=== PATIENT | female | born 1940 | race American Indian/Alaskan Native ===

== ENCOUNTER → 2018-08-09 13:28 | Outpatient (CLI) | payer MEDICARE, MEDICAID, OTHER, SELFPAY ==
--- NOTE | 2018-08-09 | DI.RAD.S_ITS ---
PROCEDURE: XR KNEE RT 3V INDICATIONS: RIGHT KNEE PAIN TECHNIQUE: 3 views of the knee were acquired. COMPARISON: [facility], KNEE 3V LEFT, 08/22/2009, 8:57. [facility], KNEE 3V RIGHT, 05/07/2007, 3:30. FINDINGS: Bones: No fractures or dislocations, but there is severe knee joint osteoarthritis on the right where [id number] articulation is present at both feet ition lateral compartments but greater medially. Additionally at the patellofemoral joint there is moderate degenerative osteoarthritis at the lateral facet which appears to mildly worsened.. No suspicious bony lesions. Soft tissues: No joint effusion. No suspicious soft tissue calcifications. IMPRESSION: Progression of degenerative knee joint osteoarthritis from 2007 through to this current study documenting change from a moderate degree of osteoarthritis to a severe degree currently. Dictated by: Bar Hoffman M.D. on 08/09/2018 at 14:19 Approved by: Bar Hoffman M.D. on 08/09/2018 at 14:21
== END ==
PROVIDERS: PCP Family Medicine; Visit Provider Family Medicine
DX: M17.11 Unilateral primary osteoarthritis, right knee (principal)
CPT/HCPCS: 73562

== ENCOUNTER → 2020-05-12 17:30 | Outpatient (CLI) | payer MEDICARE, MEDICAID, OTHER, SELFPAY ==
--- NOTE | 2020-05-12 | DI.RAD.S_ITS ---
PROCEDURE: XR RIBS LT 2V INDICATIONS: Contusion Of Lt Chest Wall TECHNIQUE: Two views of the left ribs were acquired. COMPARISON: None. FINDINGS: Surgical changes and devices: None. Bones and chest wall: No visible displaced rib fractures or dislocations. Mild multilevel degenerative disc and endplate changes through the thoracic spine. Severe degeneration at the left chronic clavicular joint No suspicious bony lesions. Overlying soft tissues appear unremarkable. Lungs and pleura: The visualized lung appears clear. No pleural effusions or pneumothorax are visible. IMPRESSION: 1. No visible left-sided rib fractures. 2. 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 Dictated by: Bethany Isaacs M.D. on 05/12/2020 at 20:28 Approved by: Bethany Isaacs M.D. on 05/12/2020 at 20:31
--- NOTE | 2020-05-12 | DI.RAD.S_ITS ---
PROCEDURE: XR CHEST 2V INDICATIONS: Contusion Of Lt Chest Wall TECHNIQUE: 2 views of the chest were acquired. COMPARISON: [facility], , CHEST 2 VIEW, 06/01/2017, 21:44. FINDINGS: Surgical changes and devices: None. Lungs and pleura: Chronic asymmetric left hemidiaphragm eventration. Lungs are clear. No pleural effusions or pneumothorax. Mediastinum: Mediastinal contours are stable. Heart size is normal. Bones and chest wall: No suspicious bony abnormalities. Soft tissues appear unremarkable. IMPRESSION: 1. No radiographic evidence of acute chest trauma. Dictated by: Bethany Isaacs M.D. on 05/12/2020 at 20:31 Approved by: Bethany Isaacs M.D. on 05/12/2020 at 20:34
== END ==
PROVIDERS: PCP Family Medicine; Referring Provider Family Medicine; Visit Provider Family Medicine
DX: S20.212A Contusion of left front wall of thorax, initial encounter (principal); M19.011 Primary osteoarthritis, right shoulder; M47.814 Spondylosis without myelopathy or radiculopathy, thoracic region; X58.XXXA Exposure to other specified factors, initial encounter
CPT/HCPCS: 71046; 71100

== ENCOUNTER 2021-11-11 17:42 | Emergency (ER) | payer OTHER, MEDICAID, SELFPAY ==
[2021-11-11 17:52] VITALS: BP 163/67; PULSE 48; RESP 17; TEMP 37.1; O2SAT 97; BMI 22.8
--- NOTE | 2021-11-11 18:11 | ED.LOWEXIN ---
HPI - Extremity Injury (Lower) General Chief Complaint: Extremity Injury, Lower Stated Complaint: knee pain Time Seen by Provider: 11/11/21 18:11 Source: patient and EMS Mode of arrival: EMS Limitations: no limitations History of Present Illness HPI Narrative: This is a 81-year-old female who states she had a ground level fall on Tuesday. She states she landed on her knee. She tripped over a rug in her home. She states since then she is continued to have pain with ambulation. She tried Tylenol x1 without any improvement. She states she is normally quite active she had been cleaning her house prior to her fall. Patient denies any numbness or tingling. She denies weakness elsewhere. She denies any other injuries. She denies any other symptoms currently. She takes medication for hypertension and seasonal allergies including losartan and certirizine. Patient denies any recent surgeries. Denies any known drug allergies. No tobacco, alcohol or illicit. Her primary care is through the [facility]. Related Data Previous Rx's Medication Instructions Recorded fluticasone propionate 50 1 spray intranasal BID ##16 07/26/16 mcg/actuation nasal spray,suspension cetirizine 10 mg tablet 10 mg PO QDAY #30 tabs 12/15/16 cefuroxime axetil 250 mg tablet 250 mg PO BID #14 tabs 07/28/17 losartan 100 mg tablet (Cozaar) 100 mg PO QDAY #20 tabs 06/15/18 hydrocodone 5 mg-acetaminophen 325 1 tab PO Q6H PRN pain #10 tabs 11/11/21 mg tablet Review of Systems Review of Systems ROS Unobtainable: All systems reviewed & are unremarkable except as noted in HPI and below Patient History Social History Smoking Status: Former smoker Smoking Status: Former smoker Substance Use Type: does not use Exam Narrative Exam Narrative: GEN: well nourished, well appearing elderly female, alert and oriented, patient appears to be in mild distress. HEENT: Atraumatic, pupils are equal round reactive to light, extraocular movements are intact, nares are clear, TMs are clear with no fluid, there is no conjunctival pallor. Throat is clear without any exudates, erythema, tonsillar enlargement or uvular deviation HEART: Regular rate and rhythm without murmur, clicks, rubs. LUNGS:Lungs clear to auscultation, no wheezes, rales, crackles, chest moves symmetrically ABD:bowel sounds normal, soft, non-tender, no guarding, rebound, rigidity, no masses noted, no hepatosplenomegaly :No CVA tenderness MSCL: Patient has swelling of right knee. Patient has generalized tenderness of the knee. No obvious ecchymosis or skin changes. No lacerations. Patient has pain with joint laxity testing. no muscle atrophy, muscles strength 5/5 upper and lower extremities, full range of motion passively but painful. NEURO:CN 2-12 intact, sensation normal SKIN: No rash, ecchymosis, erythema or other skin changes noted. Initial Vital Signs Initial Vital Signs: Vital Signs Temperature 98.7 F 11/11/21 17:52 Pulse Rate 48 L 11/11/21 17:52 Respiratory Rate 17 11/11/21 17:52 Blood Pressure 163/67 H 11/11/21 17:52 Pulse Oximetry 97 11/11/21 17:52 Oxygen Delivery Method 11/11/21 17:52 Course Orders Ordered: Discontinued Medications Hydrocodone Bitart/Acetaminophen (Hydrocodone/Acet 5/325 Tablet) 1 tab PO NOW ONE Stop: 11/11/21 18:34 Last Admin: 11/11/21 18:45 Dose: 1 tab Documented By: TAMARA Reevaluation(s) Reevaluation #1: Patient is feeling better after norco. Reviewed x-ray findings. She does not have a walker anything to help with movement at home so discussed sending her home with 1 today. Jd wrap here and follow-up with her primary care were ultimately orthopedic surgery if not improving over the next week. Patient expresses understanding and comfort with this plan. Time: 19:10 Vital Signs Vital signs: Vital Signs - 8 hr 11/11/21 17:52 11/11/21 18:35 11/11/21 19:17 Temperature 98.7 F Pulse Rate 48 L 49 L 51 L Respiratory Rate 17 20 20 Blood Pressure 163/67 H 158/68 H 158/71 H Pulse Oximetry 97 98 100 Oxygen Delivery Method Room Air Room Air Room Air MDM - Extremity Injury (Lower) Imaging Data Extremity x-ray #1: Radiologist's Impression: Close Knee X-Ray (Signed) Kvng Arce - 11/11/21 Launch?Image [address] [address] XRay Report Signed Patient: Carolyne Wood MR#: [id number] : 1940 Acct:[id number] Age/Sex: 81 / F Date of Service: 11/11/21 Loc: ED Accession Number: [id number] ?? Procedure: XR knee RT 3V Ordering Provider: Vanessa Cochran D.O. PROCEDURE:? XR KNEE RT 3V ? INDICATIONS:? pain, swelling, fall on Tuesday. ? TECHNIQUE:? 3 views of the knee were acquired.? ? COMPARISON:? [facility], CR, XR KNEE RT 3V, 08/09/2018, 13:39. ? FINDINGS:? ? Bones:? No fractures or dislocations.? No suspicious bony lesions.? Moderate tricompartmental periarticular osteophyte formation.? Severe medial compartment narrowing. ? Soft tissues:? No joint effusion.? No suspicious soft tissue calcifications.? ? ? IMPRESSION:? 1. Osteoarthritis. 2. No acute fracture. No osseous lesion. If symptoms and/or clinical suspicion for pathology persist, further assessment with repeat, or advanced imaging (e.g., CT, MRI, or bone scan) may be helpful for further assessment. ? ? Dictated by: Kvng Arce M.D. on 11/11/2021 at 18:50 ? ? Approved by: Kvng Arce M.D. on 11/11/2021 at 18:51 MDM Narrative Medical decision making narrative: This is a 81-year-old female with ground level fall who is not anticoagulated who has isolated knee pain since Tuesday with no reported head injury. Patient's x-ray shows no acute fracture, she does have osteoarthritis, no large joint effusion. Discussed with patient suspect she may have a tendon or ligamentous injury she does have swelling on exam. She is improved with pain medication here. Plan for walker at home, Jd wrap and follow-up with PCP Orthopedic surgery in the next week if symptoms are not improving. Fall precautions were discussed all questions answered. Discharge Plan Departure Patient Disposition: Home Clinical Impression: Knee pain, right, Injury of knee, right Instructions: DI for Knee Pain Activity Restrictions/Additional Instructions: Your xray imaging does not show any injury to the bones today. Please follow-up with your primary care or orthopedic surgery in the next week if your symptoms are not resolving. Referral is included below, please call for an appointment. You can take Tylenol to a 1000 mg every 6 hours or [place] 1-2 tablets every 6 hours as needed for pain. These both have Tylenol in them so do not take more than 4000 mg of Tylenol in 24 hours. This medication can make you sleepy do not drive, perform hazardous activities or make any major decisions while taking it. This medication will make you constipated please take a stool softener once to twice daily until stools are soft and regular. Prescription sent to [facility] Splint Care: Keep splint clean and dry. Elevated affected body part to decrease swelling. OK to use ice pack on the affected body part. Use for 15-20 minutes each time, for 5-6x per day. If you develop worsening pain, numbness, tingling, discoloration of the affected body part, loosen the JD wrap, and either see your doctor for an urgent re-assessment, or return to the Emergency Department. Return to the Emergency Department for any new or worsening symptoms. Prescriptions: New hydrocodone-acetaminophen 5-325 mg tablet 1 tab PO Q6H PRN (Reason: pain) Qty: 10 0RF No Action fluticasone propionate 16 GM spray,suspension 1 spray Intranasal BID Qty: 16 5RF cetirizine 10 MG tablet 10 mg PO QDAY Qty: 30 2RF cefuroxime axetil 250 MG tablet 250 mg PO BID Qty: 14 0RF losartan [Cozaar] 100 mg tablet 100 mg PO QDAY Qty: 20 0RF Rx Instructions: Pt has yet to est. care with a new PCP. Please have patient call clinic and schedule appt. 06/15/18 Referrals: Razia Mejia MD [Primary Care Provider] - Chasidy Rouse MD [Physician] - Visit Report Forms: Patient Portal/API
--- NOTE | 2021-11-11 18:33 | DI.RAD.S_ITS ---
PROCEDURE: XR KNEE RT 3V INDICATIONS: pain, swelling, fall on Tuesday. TECHNIQUE: 3 views of the knee were acquired. COMPARISON: [facility], CR, XR KNEE RT 3V, 08/09/2018, 13:39. FINDINGS: Bones: No fractures or dislocations. No suspicious bony lesions. Moderate tricompartmental periarticular osteophyte formation. Severe medial compartment narrowing. Soft tissues: No joint effusion. No suspicious soft tissue calcifications. IMPRESSION: 1. Osteoarthritis. 2. No acute fracture. No osseous lesion. If symptoms and/or clinical suspicion for pathology persist, further assessment with repeat, or advanced imaging (e.g., CT, MRI, or bone scan) may be helpful for further assessment. Dictated by: Kvng Arce M.D. on 11/11/2021 at 18:50 Approved by: Kvng Arce M.D. on 11/11/2021 at 18:51
[2021-11-11 18:35] VITALS: BP 158/68; PULSE 49; RESP 20; O2SAT 98
[2021-11-11] MEDS: HYDROCODONE/ACET 5/325 TABLET 1 TAB PO (18:45)
[2021-11-11 19:17] VITALS: BP 158/71; PULSE 51; RESP 20; O2SAT 100
--- NOTE | 2021-11-11 19:24 | PC.NURSE ---
Jd wrap applied to pt right knee. Pt arranging transportation to her home. Pt to ambulate from ER with cane.
== END 2021-11-11 20:00 | disposition home or self-care (01) ==
PROVIDERS: Emergency Provider Emergency Medicine; PCP Family Medicine
DX: M25.561 Pain in right knee (principal); W18.30XA Fall on same level, unspecified, initial encounter
CPT/HCPCS: 73562; 99283

== ENCOUNTER 2022-10-22 20:49 | Emergency (ER) | payer MEDICARE, MEDICAID, OTHER, SELFPAY ==
[2022-10-22] VITALS (7 sets, daily range): BP systolic 117–143; BP diastolic 58–69; PULSE 53–66; RESP 20; TEMP 37; O2SAT 96–98; BMI 26.0
--- NOTE | 2022-10-22 21:07 | DI.RAD.S_ITS ---
PROCEDURE: XR CHEST 1V INDICATIONS: Shortness of breath TECHNIQUE: One view of the chest was acquired. COMPARISON: [facility], CR, XR CHEST 2V, 05/12/2020, 17:43. FINDINGS: Surgical changes and devices: Cholecystectomy clips are seen. Lungs and pleura: An incomplete inspiratory result is noted, causing a crowded appearance to the lung markings. No focal infiltrates are seen. No pneumothorax or significant pleural effusions are seen. Mediastinum: The cardiac contours are within normal limits. The aorta demonstrates calcification and tortuosity. Bones and chest wall: No suspicious bony lesions. Age-appropriate bony degenerative changes are seen. Overlying soft tissues appear unremarkable. IMPRESSION: Limited portable chest examination, without a significant cardiopulmonary abnormality identified. Postoperative and degenerative changes are seen. Dictated by: Jorge Luis Timmons M.D. on 10/22/2022 at 21:11 Approved by: Jorge Luis Timmons M.D. on 10/22/2022 at 21:11
[2022-10-22 21:43] LABS: Add Manual Diff / Slide Review NO; Basophils Absolute Auto 0 /uL (0-100); Basophils Percent Auto 0.4 % (0-2); Eosinophils Absolute Auto 0 /uL (0-450); Eosinophils Percent Auto 0.3 % (2-4); Hematocrit 39.8 % (36-46); Hemoglobin 13.4 g/dL (12.0-16.0); Lymphocytes Absolute Auto 900 /uL (1100-4500); Lymphocytes Percent Auto 16.8 % (25-40); Mean Corpuscular HGB Conc 33.7 % (30-36); Mean Corpuscular Hemoglobin 29.2 PG (26-34); Mean Corpuscular Volume 86.6 fL (80-100); Monocytes Absolute Auto 600 /uL (0-900); Monocytes Percent Auto 11.3 % (3-14); Neutrophils Absolute Auto 3700 /uL (1500-7000); Neutrophils Percent Auto 71.2 % (50-75); Platelet Count 136 X10^3/uL (150-400); Red Blood Cell Count 4.59 X10^6/uL (4.0-5.2); Red Cell Distribution Width 14.6 % (11.6-14.8); White Blood Cell Count 5.2 X10^3/uL (4.5-11.0)
[2022-10-22 21:46] LABS: INR 1.1 (0.9-1.3); Prothrombin Time 12.7 SECONDS (10.1-12.7)
[2022-10-22 21:50] LABS: Alanine Aminotransferase 20 IU/L (<35); Albumin Globulin Ratio 1.2 (1.0-2.8); Alkaline Phosphatase 92 U/L (38-126); Aspartate Aminotransferase 32 IU/L (14-36); BUN Creatinine Ratio 17.9 (6-22); Bilirubin Total 0.9 mg/dL (0.2-1.3); Blood Urea Nitrogen 14 mg/dL (7-17); Calcium 8.4 mg/dL (8.4-10.2); Carbon Dioxide 25 mmol/L (22-32); Chloride 99 mmol/L (98-107); Estimated Glomerular Filt Rate > 60 mL/min (>60); Globulin 3.3 g/dL (1.7-4.1); Glucose 106 mg/dL (80-110); HEMOLYSIS < 15 (0-50); Lactate (Lactic Acid) 0.7 mmol/L (0.7-2.1); Sodium 130 mmol/L (137-145); Total Protein 7.3 g/dL (6.3-8.2)
[2022-10-22 22:01] LABS: NT-proBNP (BNP-Adult 18+) 741 pg/mL (<450); Troponin I 0.016 ng/mL (0.01-0.034)
[2022-10-22 22:20] LABS: Adenovirus Not Detected (Not Detect); B. parapertussis Not Detected (Not Detecte); Bordetella pertussis Not Detected (Not Detecte); Chlamydophila pneumoniae Not Detected (Not Detect); Coronavirus 229E Not Detected (Not Detect); Coronavirus HKU1 Not Detected (Not Detect); Coronavirus NL 63 Not Detected (Not Detect); Coronavirus OC43 Not Detected (Not Detect); Human Metapneumovirus Not Detected (Not Detect); Human Rhinovirus/Enterovirus Not Detected (Not Detect); Influenza A Not Detected (Not Detect); Influenza B Not Detected (Not Detect); Mycoplasma pneumoniae Not Detected (Not Detect); Parainfluenza Virus 1 Not Detected (Not Detect); Parainfluenza Virus 2 Not Detected (Not Detect); Parainfluenza Virus 3 Not Detected (Not Detect); Parainfluenza Virus 4 Not Detected (Not Detect); Respiratory Syncytial Virus Not Detected (Not Detect)
[2022-10-22 22:21] LABS: SARS- CoV-2 Detected (Not Detecte)
[2022-10-23] VITALS: BP 133/60; PULSE 52; O2SAT 97
--- NOTE | 2022-10-23 00:02 | ED_ITS ---
HPI - SOB/Dyspnea General Chief Complaint: Shortness of Breath/Dyspnea Stated Complaint: Vomiting Time Seen by Provider: 10/23/22 00:01 Source: patient Mode of arrival: Ambulatory Limitations: no limitations History of Present Illness HPI Narrative: Patient is a 82-year-old female history of hypertension presenting today with a variety of symptoms. She reports that she is had fever cough congestion ongoing for about 1-2 weeks. She reports feeling better today however after lunch, which is the 1st meal she is had an awhile, she threw up 4 times. This brought her to the ED for further evaluation. sHe reports he is having some shortness of breath exertion minimal chest discomfort. She denies any abdominal pain or diarrhea. She has had some mild fever as well. She overall thought she was doing little bit better but still quite fatigued. Related Data Previous Rx's Medication Instructions Recorded fluticasone propionate 50 1 spray intranasal BID ##16 07/26/16 mcg/actuation nasal spray,suspension cetirizine 10 mg tablet 10 mg PO QDAY #30 tabs 12/15/16 cefuroxime axetil 250 mg tablet 250 mg PO BID #14 tabs 07/28/17 losartan 100 mg tablet (Cozaar) 100 mg PO QDAY #20 tabs 06/15/18 hydrocodone 5 mg-acetaminophen 325 1 tab PO Q6H PRN pain #10 tabs 11/11/ mg tablet ondansetron 4 mg disintegrating 4 mg PO Q8H PRN nausea and 10/23/22 tablet vomiting #10 tabs Allergies Allergy/AdvReac Type Severity Reaction Status Date / Time No Known Drug Allergies Allergy Verified 10/22/22 21:07 Review of Systems Review of Systems ROS Unobtainable: All systems reviewed & are unremarkable except as noted in HPI and below Patient History Social History Smoking Status: Former smoker Smoking Status: Former smoker alcohol intake frequency: 0-2 drinks per day Substance Use Type: does not use Exam Initial Vital Signs Initial Vital Signs: Vital Signs Temperature 98.6 F 10/22/22 20:58 Pulse Rate 66 10/22/22 20:58 Respiratory Rate 20 10/22/22 20:58 Blood Pressure 117/69 10/22/22 20:58 Pulse Oximetry 97 06/23/23 20:58 Oxygen Delivery Method Room Air 10/22/22 20:58 GENERAL: Alert 82-year-old female appears well HEENT: Head atraumatic,EOMI, pupils reactive, face symmetric, moist mucous membranes CARDIOVASCULAR: Regular rate and rhythm without murmurs, rubs or gallops. RESPIRATORY: Breath sounds equal bilaterally, no wheezes rales or rhonchi. No conversational dyspnea ABDOMEN: Soft, nontender. Normoactive bowel sounds all 4 quadrants. No guarding or rebound. EXTREMITIES: Normal range of motion, no clubbing or edema. Neurovascularly intact NEUROLOGICAL: Alert and oriented x4.Normal gait and speech. SKIN: Warm, dry, no laceration, no petechiae, no rashes or lesions. Course Orders Ordered: ED Orders 10/22/22 21:07 XR chest 1V Stat EKG-12 Lead Stat Measure peak expiratory flow ONCE RT Consult Eval and Treat NOW 10/22/22 21:12 Respiratory Panel (Film Array) Stat 10/22/22 21:25 Complete Blood Count AUTO DIFF Stat Comprehensive Metabolic Panel Stat Lactate (Lactic Acid) Stat NT-proBNP (BNP-Adult 18+) Stat Prothrombin Time INR Stat Troponin I Stat Discontinued Medications Albuterol (Albuterol Hfa Prepack) 1 box [facility] Stop: 10/23/22 00:13 Last Admin: 10/23/22 00:22 Dose: 1 box Documented By: Ondansetron HCl (Ondansetron 4 Mg Odt Prepack) 1 bottle [facility] ONE Stop: 10/23/22 00:13 Last Admin: 10/23/22 00:48 Dose: 1 bottle Documented By: SASKIA Vital Signs Vital signs: Vital Signs - 8 hr 10/22/22 22:29 10/22/22 22:29 10/22/22 22:30 Temperature Pulse Rate 63 Blood Pressure 128/67 118/63 Pulse Oximetry 98 10/22/22 22:30 10/22/22 23:00 10/22/22 23:01 Temperature Pulse Rate 60 53 L 54 L Blood Pressure Pulse Oximetry 98 96 96 10/22/22 23:01 10/22/22 23:30 10/22/22 23:31 Temperature Pulse Rate 54 L 55 L Blood Pressure 143/67 H Pulse Oximetry 97 96 10/22/22 23:31 10/23/22 00:00 10/23/22 00:00 Temperature Pulse Rate 52 L Blood Pressure 123/58 L 133/60 Pulse Oximetry 97 10/23/22 00:30 10/23/22 00:30 10/23/22 00:49 Temperature 97.7 F Pulse Rate 57 L Blood Pressure 121/57 L Pulse Oximetry 98 MDM - SOB/Dyspnea Lab Data 10/22/22 21:25 10/22/22 21:25 Labs: Lab Results 10/22/22 10/22/22 10/22/22 Range/Units 21:12 21:25 21:25 WBC 5.2 (4.5-11.0) X10^3/uL RBC 4.59 (4.0-5.2) X10^6/uL Hgb 13.4 (12.0-16.0) g/dL Hct 39.8 (36-46) % MCV 86.6 (80-100) fL MCH 29.2 (26-34) PG MCHC 33.7 (30-36) % RDW 14.6 (11.6-14.8) % Plt Count 136 L (150-400) X10^3/uL Neut % (Auto) 71.2 (50-75) % Lymph % (Auto) 16.8 L (25-40) % [place] % (Auto) 11.3 (3-14) % Eos % (Auto) 0.3 L (2-4) % Baso % (Auto) 0.4 (0-2) % Neut # (Auto) 3700 (0748-5885) /uL Lymph # (Auto) 900 L (6168-7931) /uL [place] # (Auto) 600 (0-900) /uL Eos # (Auto) 0 (0-450) /uL Baso # (Auto) 0 (0-100) /uL PT 12.7 (10.1-12.7) SECONDS INR 1.1 (0.9-1.3) Sodium (137-145) mmol/L Potassium (3.4-5.1) mmol/L Chloride (98-107) mmol/L Carbon Dioxide (22-32) mmol/L BUN (7-17) mg/dL Creatinine (0.52-1.04) mg/dL Estimated GFR (>60) mL/min BUN/Creatinine Ratio (6-22) Glucose (80-110) mg/dL Lactate (0.7-2.1) mmol/L Calcium (8.4-10.2) mg/dL Total Bilirubin (0.2-1.3) mg/dL AST (14-36) IU/L ALT (<35) IU/L Alkaline Phosphatase (38-126) U/L Troponin I (0.01-0.034) ng/mL NT-Pro-B Natriuret Pep (<450) pg/mL Total Protein (6.3-8.2) g/dL Albumin (3.5-5.0) g/dL Globulin (1.7-4.1) g/dL Albumin/Globulin Ratio (1.0-2.8) Chlamy pneumoniae PCR Not detected (Not Detect) Adenovirus (PCR) Not detected (Not Detect) B. pertussis DNA (PCR) Not detected (Not Detecte) B.parapertussis DNA PCR Not detected (Not Detecte) Coronavirus OC43 (PCR) Not detected (Not Detect) Coronavirus HKU1 (PCR) Not detected (Not Detect) Coronavirus 229E (PCR) Not detected (Not Detect) SARS-CoV-2 (PCR) Detected H (Not Detecte) Coronavirus NL63 (PCR) Not detected (Not Detect) Human Metapneumovir PCR Not detected (Not Detect) Influenza Type A (PCR) Not detected (Not Detect) Influenza Type B (PCR) Not detected (Not Detect) M. pneumoniae (PCR) Not detected (Not Detect) Parainfluenza 1 (PCR) Not detected (Not Detect) Parainfluenza 2 (PCR) Not detected (Not Detect) Parainfluenza 3 (PCR) Not detected (Not Detect) Parainfluenza 4 (PCR) Not detected (Not Detect) RSV (PCR) Not detected (Not Detect) Entero/Rhino (PCR) Not detected (Not Detect) 10/22/22 10/22/22 Range/Units 21:25 21:25 WBC (4.5-11.0) X10^3/uL RBC (4.0-5.2) X10^6/uL Hgb (12.0-16.0) g/dL Hct (36-46) % MCV (80-100) fL MCH (26-34) PG MCHC (30-36) % RDW (11.6-14.8) % Plt Count (150-400) X10^3/uL Neut % (Auto) (50-75) % Lymph % (Auto) (25-40) % [place] % (Auto) (3-14) % Eos % (Auto) (2-4) % Baso % (Auto) (0-2) % Neut # (Auto) (0015-9373) /uL Lymph # (Auto) (2731-8043) /uL [place] # (Auto) (0-900) /uL Eos # (Auto) (0-450) /uL Baso # (Auto) (0-100) /uL PT (10.1-12.7) SECONDS INR (0.9-1.3) Sodium 130 L (137-145) mmol/L Potassium 4.0 (3.4-5.1) mmol/L Chloride 99 (98-107) mmol/L Carbon Dioxide 25 (22-32) mmol/L BUN 14 (7-17) mg/dL Creatinine 0.78 (0.52-1.04) mg/dL Estimated GFR > 60 (>60) mL/min BUN/Creatinine Ratio 17.9 (6-22) Glucose 106 (80-110) mg/dL Lactate 0.7 (0.7-2.1) mmol/L Calcium 8.4 (8.4-10.2) mg/dL Total Bilirubin 0.9 (0.2-1.3) mg/dL AST 32 (14-36) IU/L ALT 20 (<35) IU/L Alkaline Phosphatase 92 (38-126) U/L Troponin I 0.016 (0.01-0.034) ng/mL NT-Pro-B Natriuret Pep 741 H (<450) pg/mL Total Protein 7.3 (6.3-8.2) g/dL Albumin 4.0 (3.5-5.0) g/dL Globulin 3.3 (1.7-4.1) g/dL Albumin/Globulin Ratio 1.2 (1.0-2.8) Chlamy pneumoniae PCR (Not Detect) Adenovirus (PCR) (Not Detect) B. pertussis DNA (PCR) (Not Detecte) B.parapertussis DNA PCR (Not Detecte) Coronavirus OC43 (PCR) (Not Detect) Coronavirus HKU1 (PCR) (Not Detect) Coronavirus 229E (PCR) (Not Detect) SARS-CoV-2 (PCR) (Not Detecte) Coronavirus NL63 (PCR) (Not Detect) Human Metapneumovir PCR (Not Detect) Influenza Type A (PCR) (Not Detect) Influenza Type B (PCR) (Not Detect) M. pneumoniae (PCR) (Not Detect) Parainfluenza 1 (PCR) (Not Detect) Parainfluenza 2 (PCR) (Not Detect) Parainfluenza 3 (PCR) (Not Detect) Parainfluenza 4 (PCR) (Not Detect) RSV (PCR) (Not Detect) Entero/Rhino (PCR) (Not Detect) Imaging Data Chest x-ray: Radiologist's Impression: PROCEDURE:? XR CHEST 1V ? INDICATIONS:? Shortness of breath ? TECHNIQUE:? One view of the chest was acquired.? ? COMPARISON:? [facility], , XR CHEST 2V, 05/12/2020, 17:43. ? FINDINGS:? ? Surgical changes and devices:? Cholecystectomy clips are seen.? ? Lungs and pleura:? An incomplete inspiratory result is noted, causing a crowded appearance to the lung markings.? No focal infiltrates are seen.? No pneumothorax or significant pleural effusions are seen. ? ? Mediastinum:? The cardiac contours are within normal limits. The aorta demonstra abdiaziz calcification and tortuosity. ? Bones and chest wall:? No suspicious bony lesions.? Age-appropriate bony degenerative changes are seen.? Overlying soft tissues appear unremarkable.? IMPRESSION:? ? Limited portable chest examination, without a significant cardiopulmonary abnormality identified.? ? Postoperative and degenerative changes are seen.? ? Dictated by: Jorge Luis Timmons M.D. on 10/22/2022 at 21:11 ?? ECG Data Interpretation: Sinus rhythm rate 57 RI interval 34 QRS [address] changes or T-wave inversi ons MDM Narrative Medical decision making narrative: Patient 82-year-old female history of hypertension presenting with 2 weeks of upper respiratory like symptoms with vomiting today. She is found to be COVID positive without evidence of pneumonia or hypoxia. Blood work is overall read reassuring without any clinical significance. Abdomen is soft and nontender she is tolerating fluids no evidence of dehydration. Symptoms are all likely related to COVID infection. At this time she does not require admission. Discharge Plan Departure Patient Disposition: Home Clinical Impression: COVID-19 Instructions: COVID-19 Activity Restrictions/Additional Instructions: *You have been diagnosed with COVID-19 *What to do: Increase fluid intake as tolerated recommend Pedialyte or Pedialyte like product may increase diet as tolerated. Please monitor oxygen level at home if decreasing to 90% then needs to return to emergency department for further evaluation *Continue to take medications as directed--> SENT TO [facility] Zofran 4 mg every 8 hours if needed for nausea vomiting Albuterol inhaler 1-2 puffs with spacer if needed for shortness breath *Follow up with your primary care provider in 2-3 days or call [phone] *Return to ER if you should have decreasing oxygen, not tolerating fluids, increased confusion weakness or worsening shortness of [or] any new, worsening or concerning symptoms Prescriptions: New ondansetron 4 mg tablet,disintegrating 4 mg PO Q8H PRN (Reason: nausea and vomiting) Qty: 10 0RF No Action fluticasone propionate 16 GM spray,suspension 1 spray Intranasal BID Qty: 16 5RF cetirizine 10 MG tablet 10 mg PO QDAY Qty: 30 2RF cefuroxime axetil 250 MG tablet 250 mg PO BID Qty: 14 0RF losartan [Cozaar] 100 mg tablet 100 mg PO QDAY Qty: 20 0RF Rx Instructions: Pt has yet to est. care with a new PCP. Please have patient call clinic and schedule appt. 06/15/18 hydrocodone-acetaminophen 5-325 mg tablet 1 tab PO Q6H PRN (Reason: pain) Qty: 10 0RF Referrals: Razia Mejia MD [Primary Care Provider] - Stand Alone Forms: Patient Portal/API
[2022-10-23] MEDS: ALBUTEROL HFA PREPACK 1 BOX MISC (00:22)
[2022-10-23 00:30] VITALS: BP 121/57; PULSE 57; O2SAT 98
[2022-10-23] MEDS: ONDANSETRON 4 MG ODT PREPACK 1 BOTTLE MISC (00:48)
[2022-10-23 00:49] VITALS: TEMP 36.5
== END 2022-10-23 00:50 | disposition home or self-care (01) ==
PROVIDERS: Emergency Provider Emergency Medicine; PCP Family Medicine
DX: U07.1 COVID-19 (principal); R06.02 Shortness of breath
CPT/HCPCS: 36415; 71045; 80053; 83605; 83880; 84484; 85025; 85610; 87633; 93005; 99283; 99284

== ENCOUNTER 2024-12-01 20:31 | Emergency (ER) | payer MEDICARE, MEDICAID, SELFPAY ==
[2024-12-01] VITALS (11 sets, daily range): BP systolic 145–187; BP diastolic 65–88; PULSE 51–70; RESP 17–24; TEMP 36.6; O2SAT 97–100
--- NOTE | 2024-12-01 22:08 | PC.NURSE ---
Pt had a call from a family member multiple times. He called the family friend that is always with him and started to argue with this nurse. I advised him that I am not able to speak to him at this time, that he will need to get information from people in room. Alhaji stated at first that he was the Guardian ruben hanley. I clarified do you mean, Power of Wardrobe Specialty Worker? He states yes. After review of pt chart, no documentation of POA. Pt is alert and oriented at this time and can give information to Alhaji herself when we have an update. However, I did state that we were not going to argue with him over the phone our priority is to treat the pt.
[2024-12-01] MEDS: ONDANSETRON 4 MG/2 ML INJ IV ×2 (22:10→23:19)
--- NOTE | 2024-12-01 22:43 | ED_ITS ---
HPI - Extremity Problem General Chief complaint: Extremity Problem,Nontraumatic Stated complaint: leg and abdomen pain Time Seen by Provider: 12/01/24 20:35 Source: patient and EMS Mode of arrival: EMS History of Present Illness HPI Narrative: 84-year-old female complains of epigastric central and also lower abdominal pain with pain to the right leg, no injury recalled. No aortic artery conditions or treatments known. No painful or frequent urination. Denies cough or shortness of breath. No diarrhea. Some nausea and vomiting of ?mucus? but no black or red color to her emesis. Denies use of blood thinner medications. Denies trauma or new activities. No fevers or chills. Related Data Previous Rx's ?Medication ?Instructions ?Recorded fluticasone propionate 50 1 spray intranasal BID ##16 07/26/16 mcg/actuation nasal spray,suspension cetirizine 10 mg tablet 10 mg PO QDAY #30 tabs 12/15 cefuroxime axetil 250 mg tablet 250 mg PO BID #14 tabs 07/28/17 losartan 100 mg tablet (Cozaar) 100 mg PO QDAY #20 tab s 06/15/18 hydrocodone 5 mg-acetaminophen 325 1 tab PO Q6H PRN pa in #10 tabs 11/11/21 mg tablet ondansetron 4 mg disintegrating 4 mg PO Q8H PRN nausea and 10/23/22 tablet vomiting #10 tabs Allergies Allergy/AdvReac Type Severity Reaction Status Date / Time No Known Drug Allergies Allergy Verified 12/01/24 20:33 Patient History Social History Smoking Status: Never smoker Smoking Status: Never smoker alcohol intake frequency: 0-2 drinks per day Exam Narrative Exam Narrative: GENERAL: Well-developed patient, in mild distress. HEAD: Atraumatic. Normocephalic. EYES: Pupils equal round and reactive. Extraocular motions intact. No scleral icterus. No injection or drainage. ENT: Nose without bleeding, purulent drainage. Throat without erythema, tonsillar hypertrophy or exudate. Airway patent. NECK: Trachea midline. Non tender CARDIOVASCULAR: Regular rate and rhythm without murmurs, gallops, or rubs. RESPIRATORY: Clear to auscultation. Breath sounds equal bilaterally. No wheezes, rales, or rhonchi. GASTROINTESTINAL: Abdomen nondistended, some tenderness epigastrium as well as right lower quadrant and left lower quadrant EXTREMITIES: No edema or joint tenderness. BACK: Nontender without deformity or crepitance. No flank tenderness. NEURO: AOx3. Motor functions grossly nonfocal. SKIN: No rash or erythema of visible areas Initial Vital Signs Initial Vital Signs: Vital Signs Temperature 98 F 12/01/24 20:32 Pulse Rate 54 L 12/01/24 20:32 Respiratory Rate 17 12/01/24 20:32 Blood Pressure 181/80 H 12/01/24 20:32 Pulse Oximetry 99 12/01/24 20:32 Oxygen Delivery Method Room Air 12/01/24 20:32 Course Orders Ordered: ED Orders 12/02/24 10:51 Consult to RECYCLABLE MATERIALS DISTRIBUTOR - Disability Examiner Stat Discontinued Medications Hydromorphone HCl (Hydromorphone Hcl 0.5 Mg/0.5 Ml Syringe) 0.5 mg IV NOW ONE Stop: 12/01/24 21:44 Last Admin: 12/01/24 22:09 Dose: 0.5 mg Documented By: ROSALINDA Sodium Chloride (Normal Saline 0.9%) 1,000 mls @ 1,000 mls/hr IV BOLUS ONE Stop: 12/02/24 04:37 Last Infusion: 12/02/24 04:54 Dose: Infused Documented By: Admin: 12/02/24 03:46 Dose: 1,000 mls/hr Documented By: ROSALINDA Lidocaine HCl (Lidocaine 2% (Glydo) 6 Ml Gel) 6 ml TOP NOW ONE Stop: 12/02/24 02:14 Last Admin: 12/02/24 02:17 Dose: 6 ml Documented By: ROSALINDA Morphine Sulfate (Morphine 4 Mg/Ml Inj) 4 mg IV NOW ONE Stop: 12/01/24 22:55 Last Admin: 12/01/24 23:12 Dose: 4 mg Documented By: ROSALINDA Ondansetron HCl (Ondansetron 4 Mg/2 Ml Inj) 4 mg IV NOW ONE Stop: 12/01/24 21:47 Last Admin: 12/01/24 22:10 Dose: 4 mg Documented By: ROSALINDA Ondansetron HCl (Ondansetron 4 Mg/2 Ml Inj) 4 mg IV NOW ONE Stop: 12/01/24 22:55 Last Admin: 12/01/24 23:19 Dose: 4 mg Documented By: ROSALINDA Pantoprazole Sodium (Pantoprazole 40 Mg Vial) 40 mg IV NOW ONE Stop: 12/01/24 22:55 Last Admin: 12/01/24 23:12 Dose: 40 mg Documented By: ROSALINDA Vital Signs Vital signs: Vital Signs - 8 hr 12/02/24 07:00 12/02/24 07:00 12/02/24 07:30 Pulse Rate 55 L 51 L Respiratory Rate 18 17 Blood Pressure 126/57 L Pulse Oximetry 97 98 Oxygen Delivery Method Room Air 12/02/24 07:30 12/02/24 08:00 12/02/24 08:01 Pulse Rate 51 L 51 L Respiratory Rate 19 15 Blood Pressure 127/56 L Pulse Oximetry 98 99 Oxygen Delivery Method 12/02/24 08:01 12/02/24 08:30 12/02/24 08:30 Pulse Rate 52 L Respiratory Rate 23 Blood Pressure 156/70 H 147/107 H Pulse Oximetry 100 Oxygen Delivery Method 12/02/24 09:00 12/02/24 09:01 12/02/24 09:01 Pulse Rate 54 L 54 L Respiratory Rate 21 21 Blood Pressure 173/74 H Pulse Oximetry 99 99 Oxygen Delivery Method 12/02/24 10:44 12/02/24 12:45 Pulse Rate 53 L 56 L Respiratory Rate 16 16 Blood Pressure 170/70 H 166/65 H Pulse Oximetry 99 99 Oxygen Delivery Method Room Air Room Air MDM - Extremity (Nontraumatic) Lab Data Lab results narrative: WBC 7200, Hb 14.4, platelets adequate, normal BMP, alkaline phosphatase slight elevation with other LFTs normal, slight Lipase elevation. Troponin measurable but quite low. UA negative. 12/01/24 21:56 12/01/24 21:56 Labs: Lab Results 12/01/24 12/02/24 Range/Units 21:56 02:30 WBC 7.2 (4.5-11.0) X10^3/uL RBC 4.95 (4.0-5.2) X10^6/uL Hgb 14.4 (12.0-16.0) g/dL Hct 42.8 (36-46) % MCV 86.5 (80-100) fL MCH 29.1 (26-34) PG MCHC 33.7 (30-36) % RDW 14.0 (11.6-14.8) % Plt Count 235 (150-400) X10^3/uL Neut % (Auto) 63.7 (50-75) % Lymph % (Auto) 26.6 (25-40) % [place] % (Auto) 8.4 (3-14) % Eos % (Auto) 0.8 L (2-4) % Baso % (Auto) 0.5 (0-2) % Neut # (Auto) 4600 (7891-2235) /uL Lymph # (Auto) 1900 (9261-9209) /uL [place] # (Auto) 600 (0-900) /uL Eos # (Auto) 100 (0-450) /uL Baso # (Auto) 0 (0-100) /uL PT 11.4 (9.4-12.5) SECONDS INR 1.0 (0.9-1.3) Sodium 136 L (137-145) mmol/L Potassium 3.7 (3.4-5.1) mmol/L Chloride 100 (98-107) mmol/L Carbon Dioxide 27 (22-32) mmol/L BUN 17 (7-17) mg/dL Creatinine 0.84 (0.52-1.04) mg/dL Estimated GFR > 60 (>60) mL/min BUN/Creatinine Ratio 20.2 (6-22) Glucose 96 (70-99) mg/dL Calcium 9.0 (8.4-10.2) mg/dL Total Bilirubin 0.8 (0.2-1.3) mg/dL AST 30 (14-36) IU/L ALT 16 (<35) IU/L Alkaline Phosphatase 145 H (38-126) U/L Troponin I 0.013 (0.01-0.034) ng/mL Total Protein 7.6 (6.3-8.2) g/dL Albumin 4.4 (3.5-5.0) g/dL Globulin 3.2 (1.7-4.1) g/dL Albumin/Globulin Ratio 1.4 (1.0-2.8) Lipase 478 H (23-300) U/L Urine Color Yellow Urine Appearance Clear Urine pH 7.5 (4.5-8.0) Ur Specific [place] 1.010 (1.000-1.035) Urine Protein Negative (Negative) Urine Glucose (UA) Negative (Negative) g/dL Urine Ketones Negative (NEGATIVE) Urine Occult Blood Negative (Negative) Urine Nitrate Negative (Negative) Urine Bilirubin Negative (NEGATIVE) Urine Urobilinogen 0.2 (0.2) E.U./dL Ur Leukocyte Esterase Negative (NEGATIVE) Urine RBC 0-1/hpf (0-5/HPF) Urine WBC 0-1/hpf (0-5/HPF) Ur Squamous Epith Cells 0-1 /hpf (0-5/HPF) Urine Bacteria Occasional (0-1) (None) Ur Culture Indicated? Cult not indicated Vol Urine Centrifuged 10ml (spun) Imaging Data CTA chest abdomen and pelvis: Radiologist's Impression: [address] [address] [address] Scan Report Signed Patient: Carolyne Wood MR#: [id number] : 1940 Acct:[id number] Age/Sex: 84 / F Date of Service: 12/01/24 Loc: ED Accession Number: [id number] Procedure: CT angio chest abdomen pelvis Ordering Provider: Bear Samuel MD PROCEDURE: CT ANGIO CHEST ABDOMEN PELVIS INDICATIONS: chest abd leg pain TECHNIQUE: Precontrast 5 mm thick sections acquired from the lung apices to the iliac crests. After the administration of intravenous contrast, 2.5 mm thick sections again acquired from the lung apices to the iliac crests. Maximum intensity projection (MIP) oblique sagittal and coronal reformats were then acquired. For radiation dose reduction, the following was used: automated exposure control. COMPARISON: None. FINDINGS: Image quality: Diagnostic. AORTA: No aortic aneurysm. No acute aortic syndrome. CHEST: Lower Neck: No enlarged lymph nodes. Thyroid: No thyroid nodules which require sonographic follow up, per consensus guidelines. Axillae: No enlarged lymph nodes. Chest Wall: Unremarkable. Lungs and Pleura: No pneumothorax or pleural effusions. Bibasilar atelectasis. No focal consolidation. No septal thickening or nodularity. Visualized airways appear clear. Heart: Heart size is normal. No pericardial effusion. Thoracic Vessels: Pulmonary arteries demonstrate normal size. Mediastinum and Vanessa: No enlarged lymph nodes. Esophagus: No wall thickening. No hiatal hernia. ABDOMEN: Liver: No solid mass. Gallbladder: Surgically absent Biliary ducts: No biliary dilation. Pancreas: Homogeneous enhancement without focal lesions or pancreatic ductal dilatation. No peripancreatic inflammation or organized fluid collections. Spleen: Size is within normal limits. Adrenal Glands: No adrenal nodules. Kidneys and Ureters: No hydronephrosis. No solid mass. No complex renal cystic lesion which requires follow up. Bilateral ureters are normal in course and caliber. Stomach and Bowel: Normal colonic caliber, without significant wall thickening. Scattered colonic diverticula without acute inflammation. No evidence for small bowel obstruction or associated inflammatory changes. Peritoneum: No abnormal intraperitoneal fluid. No free air. Ventral Wall: No hernia. Abdominal Nodes: No retroperitoneal or mesenteric adenopathy by size criteria. Vessels: Inferior vena cava is normal in size. PELVIS: Pelvic Organs: Unremarkable. Bladder: Urinary bladder is markedly distended. No wall thickening or pericholecystic inflammation. Pelvic Nodes: No enlarged lymph nodes. Miscellaneous: No inguinal hernias are seen. Bones: No acute vertebral body compression fractures. Multilevel spondylitic changes throughout the imaged spine. No suspicious osseous lesions. IMPRESSION: No evidence for aortic dissection or acute aortic syndrome. Marked distension of the urinary bladder. Colonic diverticulosis without acute diverticulitis. Other chronic/non-acute findings as above. Dictated by: Evangelista Walker M.D. on 12/02/2024 at 1:04 Approved by: Evangelista Walker M.D. on 12/02/2024 at 1:11 ECG Data Attestation EKG: I personally reviewed and interpreted this ECG as follows: Interpretation: 0453, computer reading his junctional but there are P waves that seemed to be present, ventricular response rate 52. No obvious ST segment elevation or depression changes. Some fine artifact noted baseline. QRS 60, QTC 446. MDM Narrative Medical decision making narrative: 84-year-old female with upper mid lower bilateral abdominal pain nontraumatic, also pain to the right leg, afebrile, sirs screen negative. Unclear unifying diagnosis, consider aortic/vascular pathology, radiculopthy, referred pain from nonvascular abdominopelvic pathology, other. Labs pending to check GFR. Consider aortogram. Patient agreeable. Screening labs unremarakable, GFR favorable, CTA Chest Abdomen Pelvis ordered. CTA Chest Abdomen Pelvis without aortic syndrome, no acute chest findings, no GI findings, but bladder markedly distended. No mention spinal lesions. See radiology report. Smith catheter placed. Clear nonbloody urine, sent to lab. UA negative, Patient feels better after foly catheter large volume bladder emptying. Will leave smith in place with advice for urology follow-up. DC home, FU with urology, call urology office tomorrow Tuesday morning, return precautions discussed. Discharge Plan Departure Patient Disposition: Home Clinical Impression: Lower abdominal pain, Acute urinary retention Instructions: DI for Urinary Retention in Women Activity Restrictions/Additional Instructions: Lower abdominal pain. CT imaging angiogram chest abdomen and pelvis performed tonight showing no acute cardiopulmonary or abdominal process, but some marked enlargement of your bladder. This might be causing your discomfort. Smith catheter was placed, with drainage of nonbloody fluid from your bladder. No obvious infection on your urinalysis test. Leave Smith catheter in place for now. Follow up with local urologist early this next week for further assessment. Return earlier to this/nearest emergency department for any change worsening symptoms or any concerns prior. Prescriptions: No Action fluticasone propionate 16 GM spray,suspension 1 spray Intranasal BID Qty: 16 5RF cetirizine 10 MG tablet 10 mg PO QDAY Qty: 30 2RF cefuroxime axetil 250 MG tablet 250 mg PO BID Qty: 14 0RF losartan [Cozaar] 100 mg tablet 100 mg PO QDAY Qty: 20 0RF Rx Instructions: Pt has yet to est. care with a new PCP. Please have patient call clinic and schedule appt. 06/15/18 hydrocodone-acetaminophen 5-325 mg tablet 1 tab PO Q6H PRN (Reason: pain) Qty: 10 0RF ondansetron 4 mg tablet,disintegrating 4 mg PO Q8H PRN (Reason: nausea and vomiting) Qty: 10 0RF Referrals: Wiliam Brady DO [Physician, Urology] Razia Mejia MD [Primary Care Provider, Family Practice] Stand Alone Forms: Patient Portal/API
--- NOTE | 2024-12-01 22:49 | DI.CT.S_ITS ---
PROCEDURE: CT ANGIO CHEST ABDOMEN PELVIS INDICATIONS: chest abd leg pain TECHNIQUE: Precontrast 5 mm thick sections acquired from the lung apices to the iliac crests. After the administration of intravenous contrast, 2.5 mm thick sections again acquired from the lung apices to the iliac crests. Maximum intensity projection (MIP) oblique sagittal and coronal reformats were then acquired. For radiation dose reduction, the following was used: automated exposure control. COMPARISON: None. FINDINGS: Image quality: Diagnostic. AORTA: No aortic aneurysm. No acute aortic syndrome. CHEST: Lower Neck: No enlarged lymph nodes. Thyroid: No thyroid nodules which require sonographic follow up, per consensus guidelines. Axillae: No enlarged lymph nodes. Chest Wall: Unremarkable. Lungs and Pleura: No pneumothorax or pleural effusions. Bibasilar atelectasis. No focal consolidation. No septal thickening or nodularity. Visualized airways appear clear. Heart: Heart size is normal. No pericardial effusion. Thoracic Vessels: Pulmonary arteries demonstrate normal size. Mediastinum and Vanessa: No enlarged lymph nodes. Esophagus: No wall thickening. No hiatal hernia. ABDOMEN: Liver: No solid mass. Gallbladder: Surgically absent Biliary ducts: No biliary dilation. Pancreas: Homogeneous enhancement without focal lesions or pancreatic ductal dilatation. No peripancreatic inflammation or organized fluid collections. Spleen: Size is within normal limits. Adrenal Glands: No adrenal nodules. Kidneys and Ureters: No hydronephrosis. No solid mass. No complex renal cystic lesion which requires follow up. Bilateral ureters are normal in course and caliber. Stomach and Bowel: Normal colonic caliber, without significant wall thickening. Scattered colonic diverticula without acute inflammation. No evidence for small bowel obstruction or associated inflammatory changes. Peritoneum: No abnormal intraperitoneal fluid. No free air. Ventral Wall: No hernia. Abdominal Nodes: No retroperitoneal or mesenteric adenopathy by size criteria. Vessels: Inferior vena cava is normal in size. PELVIS: Pelvic Organs: Unremarkable. Bladder: Urinary bladder is markedly distended. No wall thickening or pericholecystic inflammation. Pelvic Nodes: No enlarged lymph nodes. Miscellaneous: No inguinal hernias are seen. Bones: No acute vertebral body compression fractures. Multilevel spondylitic changes throughout the imaged spine. No suspicious osseous lesions. IMPRESSION: No evidence for aortic dissection or acute aortic syndrome. Marked distension of the urinary bladder. Colonic diverticulosis without acute diverticulitis. Other chronic/non-acute findings as above. Dictated by: Evangelista Walker M.D. on 12/02/2024 at 1:04 Approved by: Evangelista Walker M.D. on 12/02/2024 at 1:11
--- NOTE | 2024-12-01 22:53 | EKG_ITS ---
[facility] [address] [place] [address] Test Date: 2024-12-02 Pat Name: Carolyne Wood Department: [facility] Room: Gender: Female Senior Oracle Adf Developer: : 1940 Requested By: Order Number: [id number] Reading MD: Anthony Figueroa Measurements Intervals [place] Rate: 52 P: VT: QRS: 40 QRSD: 60 T: 31 QT: 480 QTc: 446 Interpretive Statements Junctional rhythm. Noisy baseline. Nonspecific ST and T wave abnormality Electronically Signed On 12-08-2024 7:18:19 PDT by Anthony Figueroa
[2024-12-01 23:00] LABS: Add Manual Diff / Slide Review NO; Hematocrit 42.8 % (36-46); Hemoglobin 14.4 g/dL (12.0-16.0); INR 1.0 (0.9-1.3); Lymphocytes Absolute Auto 1900 /uL (1100-4500); Mean Corpuscular HGB Conc 33.7 % (30-36); Mean Corpuscular Hemoglobin 29.1 PG (26-34); Mean Corpuscular Volume 86.5 fL (80-100); Platelet Count 235 X10^3/uL (150-400); Prothrombin Time 11.4 SECONDS (9.4-12.5)
[2024-12-01 23:05] LABS: Alanine Aminotransferase 16 IU/L (<35); Albumin 4.4 g/dL (3.5-5.0); Albumin Globulin Ratio 1.4 (1.0-2.8); Alkaline Phosphatase 145 U/L (38-126); Blood Urea Nitrogen 17 mg/dL (7-17); Calcium 9.0 mg/dL (8.4-10.2); Carbon Dioxide 27 mmol/L (22-32); Chloride 100 mmol/L (98-107); Estimated Glomerular Filt Rate > 60 mL/min (>60); Globulin 3.2 g/dL (1.7-4.1); Glucose 96 mg/dL (70-99); HEMOLYSIS < 15 (0-50); Lipase 478 U/L (23-300); Potassium 3.7 mmol/L (3.4-5.1); Sodium 136 mmol/L (137-145); Total Protein 7.6 g/dL (6.3-8.2)
[2024-12-01] MEDS: MORPHINE 4 MG/ML INJ IV (23:12)
[2024-12-01] MEDS: PANTOPRAZOLE 40 MG VIAL IV (23:12)
[2024-12-01 23:17] LABS: Troponin I 0.013 ng/mL (0.01-0.034)
[2024-12-02] VITALS (31 sets, daily range): BP systolic 90–173; BP diastolic 43–107; PULSE 45–64; RESP 13–23; O2SAT 94–100
[2024-12-02] MEDS: LIDOCAINE 2% (GLYDO) 6 ML GEL TOP (02:17)
[2024-12-02 02:46] LABS: Appearance Urine UA CLEAR; Bilirubin Urine UA NEGATIVE (NEGATIVE); Color Urine UA YELLOW; Glucose Urine UA NEGATIVE (Negative); Ketones Urine UA NEGATIVE (NEGATIVE); Leukocyte Esterase Urine UA NEGATIVE (NEGATIVE); Nitrite Urine UA NEGATIVE (Negative); Occult Blood Urine UA NEGATIVE (Negative); Protein Urine UA NEGATIVE (Negative); Specific Gravity Urine UA 1.010 (1.000-1.035); Urobilinogen Urine UA 0.2 E.U./dL (0.2)
[2024-12-02 02:49] LABS: pH Urine UA 7.5 (4.5-8.0)
[2024-12-02 02:58] LABS: Culture Indicated Urine Cult Not Indicated
[2024-12-02] MEDS: SODIUM CHLORIDE 0.9% 1,000 ML 1000 ML IV (03:46)
--- NOTE | 2024-12-02 08:23 | PC.NURSE ---
Spoke with Angelo [phone] @ 0820 regarding patient d/c and needing a ride home. She will try to contact family/friends to arrange a ride home.
--- NOTE | 2024-12-02 09:30 | PC.NURSE ---
SUPERINTENDENT TRACK Note: Patient's family/caregiver was taking pictures by cell phone when they arrived to pick her up. They stated I am sending them to her family. Asked family to please not take pictures in the emergency department and to not take pictures of staff.
--- NOTE | 2024-12-02 10:45 | PC.NURSE ---
Family arrives to ED @ 1015 stating they are upset with night nurse Ayse for being abrupt and impolite towards them, last evening. Family states they do not have caregivers that are adequate to care for the patient, especially since pt has a smith catheter in place. Family spoke to admission discharge rn (JOSE) at length. Registration met with family member this a.m. to ensure all POAs were on the chart as appropriate. Family waiting at bedside for LINE APPLIANCE ASSEMBLER to arrive ED for consultation. Charge aware.
--- NOTE | 2024-12-02 16:16 | CM.SWNOTE ---
ED FOUNDRY EQUIPMENT MECHANIC Note Patient is 84 y/o female who presented to the ED via EMS due to concern for abdominal and right leg pain. Patient sees PCP at [facility] and has [employer] Ad[employer]age and Medicaid insurance. Patient has been cleared for discharge overnight and patient's guardian Nadia requested to meet with FOUNDRY EQUIPMENT MECHANIC prior to d/c and patient has been boarding in the ED. Upon medical clearance, patient is discharging with smith catheter with needed urology follow up. It is reported that patient has hx of Dementia. FOUNDRY EQUIPMENT MECHANIC meets with patient and guardian Nadia (patient's niece) in hallway bed. Patient presents as pleasant and comfortable, she states that she is feeling better. Nadia reports concern for patient's discharge and states that patient resides alone in [facility]. It is reported that patient has a caregiver 5 days a week for four hours each day. It is reported that the caregivers cannot manage the smith catheter and neither can the senior center where patient spends her days. FOUNDRY EQUIPMENT MECHANIC discusses identifying family members, having family members stay with patient or patient to stay with family members. Nadia indicates that she is unable to identify someone at this time. FOUNDRY EQUIPMENT MECHANIC discusses contacting patient's MELANIE briefcase sewer and offers home health. Nadia declines Home health. It is reported that family resides in [facility] and they work and are unable to take work off including her self. Nadia indicates that she has used all of her FMLA. Nadia calls patient's nephew who is the primary guardian and discusses the discharge plan. FOUNDRY EQUIPMENT MECHANIC encourages him to contact patient's Melanie briefcase sewer tomorrow morning as well as the urologist. FOUNDRY EQUIPMENT MECHANIC explains that patient is medically clear for d/c and does not meet criteria for admission and that patient's Melanie briefcase sewer can assist with seeking stone breaker care planning. Nadia indicates that she will try to identify other family members to assist with patient during this time. Nadia states she only knows the first name of patient's Melanie briefcase sewer, FOUNDRY EQUIPMENT MECHANIC is able to identify the phone number of the CM and recommends call her and leaving a . FOUNDRY EQUIPMENT MECHANIC is transparent and discusses that this process takes time. FOUNDRY EQUIPMENT MECHANIC offers HH again and Nadia declines, FOUNDRY EQUIPMENT MECHANIC recommends following up with patient's PCP if she changes her mind. Plan: patient discharges to home with family and caregivers in place upon medical clearance, patient and family to f/u with urology and Melanie CM to follow up with alf care planning. Huyen Salmeron, SKIVING MACHINE OPERATOR
== END 2024-12-02 12:53 | disposition home or self-care (01) ==
PROVIDERS: Emergency Provider Emergency Medicine; PCP Family Medicine
DX: R10.30 Lower abdominal pain, unspecified (principal); R33.8 Other retention of urine
CPT/HCPCS: 36415; 71275; 74174; 80053; 81001; 83690; 84484; 85025; 85610; 93005; 96361; 96374; 96375; 96376; 99284; J1171; J2270; J2405; J2470; Q9967